=== PATIENT | female | born 1980 | race African-American/Black ===

== ENCOUNTER 2018-03-11 05:22 | Day surgery (SDC) | payer OTHER ==
[2018-03-05 10:00] VITALS: BMI 27.8
--- NOTE | 2018-03-11 11:45 | HP ---
Admitting History and Physical - Admission History of Present Illness: 37 yo with failed IUD removal in the office for removal under anesthesia History Source: Patient Limitations to Obtaining History: No Limitations - Past Medical History Cardiovascular: No: HTN Pulmonary: No: Asthma ...LMP Comment: ?-due to implanted control Heme/Onc: Yes: Sickle Cell Trait. No: Anemia - Past Surgical History Past Surgical History: Yes: - Smoking History Smoking history: Never smoked Have you smoked in the past 12 months: No - Alcohol/Substance Use Hx Alcohol Use: No Home Medications - Allergies Allergies/Adverse Reactions: Allergies Allergy/AdvReac Type Severity Reaction Status Date / Time avocado Allergy "itchy Verified 03/11/18 10:59 mouth and throat" No Known Drug Allergies Allergy Verified 03/11/18 10:59 nectarines Allergy "eye swell" Uncoded 03/11/18 10:59 watermelon Allergy "itchy Uncoded 03/11/18 10:59 throat and mouth" - Home Medications Home Medications: Ambulatory Orders Mv-Min/Iron/Folic/Calcium/Vitk [Women's Multivitamin Tablet] 1 each PO DAILY Family Disease History - Family Disease History Family History: Denies Review of Systems - Review of Systems Constitutional: reports: No Symptoms Cardiovascular: reports: No Symptoms Musculoskeletal: reports: No Symptoms Integumentary: reports: No Symptoms Neurological: reports: No Symptoms Endocrine: reports: No Symptoms Hematology/Lymphatic: reports: No Symptoms Psychiatric: reports: No Symptoms Physical Examination Vital Signs: Vital Signs Temperature 98.0 F 03/11/18 10:56 Pulse Rate 72 03/11/18 10:56 Respiratory Rate 20 03/11/18 10:56 Blood Pressure 102/62 03/11/18 10:56 O2 Sat by Pulse Oximetry (%) 99 03/11/18 10:55 Constitutional: Yes: Well Nourished, No Distress, Calm Cardiovascular: Yes: Regular Rate and Rhythm Respiratory: Yes: Regular, CTA Bilaterally Gastrointestinal: Yes: Normal Bowel Sounds, Soft Renal/: Yes: WNL Musculoskeletal: Yes: WNL Extremities: Yes: WNL Edema: No Wound/Incision: Yes: Unapproximated Neurological: Yes: Alert ...Motor Strength: WNL Psychiatric: Yes: Alert, Oriented Assessment/Plan 37 yo with retained IUD for surgical removal 1. Consents reviewed and signed Reviewed risks including infection, bleeding, uterine perforation All questions answered 2. No antibiotics indicated 3. Will proceed to OR
[2018-03-11] MEDS ORDERED: MIDAZOLAM HCL 2 MG/2 ML SINGLE DOSE VIAL ONE (11:52)
[2018-03-11] MEDS ORDERED: PROPOFOL 20 ML ONE (11:58)
[2018-03-11 12:40] VITALS: TEMP 97.5
--- NOTE | 2018-03-11 14:28 | OP ---
Operative Note - Note: Operative Date: 03/11/18 Pre-Operative Diagnosis: retained IUD Operation: removal of IUD under anesthesia Findings: retained IUD, no strings noted Post-Operative Diagnosis: Same as Pre-op Surgeon: Raisa Sims Anesthesiologist/FAILURE ANALYSIS ENGINEER: Mary Rivas Anesthesia: General Estimated Blood Loss (mls): 3 Fluid Volume Replaced (mls): 500 Operative Report Dictated: Yes
[2018-03-11 15:47] VITALS: BP 115/57; PULSE 88
--- NOTE | 2018-03-11 16:01 | OP ---
DATE OF OPERATION: 03/11/2018 ATTENDING PHYSICIAN: Lena Sims M.D. CENTRAL SUPPLY CLERK: None. ANESTHESIOLOGIST: Mary Rivas M.D. SURGERY: Removal of IUD foreign body under anesthesia. INDICATION: Patient is a 37-year-old with a history of IUD which failed removal in the office due to significant amount of pain and no IUD strings were noted. She was counseled regarding risks, benefits, alternatives, and complications to procedure including infection, bleeding, damage to surrounding organs, uterine perforation. She expressed understanding, was brought to the operating room. DESCRIPTION OF PROCEDURE: When anesthesia was found to be adequate, patient was prepped and draped in normal sterile fashion, placed in dorsal lithotomy position using Buck stirrups. A weighted speculum was placed in the patient's vagina. The anterior lip of the cervix was grasped using single-toothed tenaculum. The cervix was gently dilated, and a polyps forceps was placed onto the fundus and the IUD was grasped and removed intact, 2 strings were noted. All instruments were removed from the patient's vagina. Examination of the cervix revealed good hemostasis. The patient was awoken from anesthesia, brought to recovery room in stable condition. LENA SIMS M.D. /[id number]
--- NOTE | 2018-03-16 15:04 | PATH ---
Surgical Pathology Report Patient Name: YANNI ROLON [facility]. Rec. #: [id number] /Age/Gender: 1980 (Age: 37) / F Account: [id number] Location: [facility] Taken: 03/11/2018 Received: 03/11/2018 Reported: 03/16/2018 Physicians: Raisa Sims Specimen(s) Received IUD FROM UTERUS Clinical History Foreign body in uterus Final Diagnosis INTRAUTERINE DEVICE (IUD), REMOVAL: FOREIGN BODY MATERIAL CONSISTENT WITH INTRAUTERINE DEVICE (IUD). MACROSCOPIC DIAGNOSIS. Electronically Signed Diamante Peterson M.D. Gross Description Received fresh labeled "IUD from uterus," is a 3.2 cm in length white, T-shaped device with an attached string, consistent with an intrauterine device. No soft tissue is present. No sections are submitted, gross only. /03/11/2018 saudi03/11/2018
== END 2018-03-11 15:30 | disposition home or self-care (01) ==
LOC: JASU-SURG 05:22
PROVIDERS: ATTEND Obstetrics & Gynecology
PROC: 0UPD7HZ Removal of Contraceptive Device from Uterus and Cervix, Via Natural or Artificial Opening (ICD-10-PCS; principal; 2018-03-11 12:00)
DX: Z45.89 Encounter for adjustment and management of other implanted devices (principal)
CPT/HCPCS: 36415; 84703; 86850; 86900; 86901; 88300-TC

== ENCOUNTER 2019-04-03 22:09 | Emergency (ER) | payer OTHER ==
[2019-04-03 22:15] VITALS: TEMP 98.8; BMI 28.3
--- NOTE | 2019-04-03 23:28 | PDOC ---
History of Present Illness - General Chief Complaint: Shortness of Breath Stated Complaint: CHEST PAIN,SHORTNESS OF BREATH Time Seen by Provider: 04/03/19 23:16 History Source: Patient Exam Limitations: No Limitations - History of Present Illness Initial Comments: 04/03/19 23:23 Ms. Oquendo is a 38-year-old female who is otherwise healthy who presents emergency department with a complaint of midsternal chest pain and shortness of breath. Patient symptoms began approximately 2 weeks ago while at work. She was seen at her job ([employer]) where she was diagnosed with anxiety/ panic attack (of note patient has a history of a panic attack after having her C -section 6 years ago) She was seen at [facility] subsequent to that, diagnosed with bronchitis. She was started on an antibiotic (completed on Friday-4 days ago), albuterol MDI, steroids. Patient was seen and followed by her primary care physician who ordered a d- dimer, patient never had it done She presents today reporting midsternal chest pain which she describes as tightness. This began 2 hours ago Pain was initially constant, now coming and going No radiation to the arms or back No associated nausea, diaphoresis No prior episodes like this Patient denies recent travel, recent surgery, recent immobilization PMH: Hyperlipidemia PSH: 6 years ago Meds: Denies ALL: NKDA Social: Denies alcohol, drug, tobacco use FH: Denies family history of early coronary artery disease, sudden ROS: GENERAL/CONSTITUTIONAL: No: fever, chills, weakness, loss of appetite. HEAD, EYES, EARS, NOSE AND THROAT: No: change in vision, ear pain, discharge, sore throat, throat swelling. CARDIOVASCULAR: Yes: chest pain, shortness of breath No: lightheadedness, palpitations, syncope RESPIRATORY: No: cough, shortness of breath, wheezing, hemoptysis, stridor. GASTROINTESTINAL: No: nausea, vomiting, diarrhea, abdominal pain GENITOURINARY: No: dysuria, hematuria, frequency, urgency, flank pain. MUSCULOSKELETAL: No: back pain, neck pain, joint pain, muscle swelling or pain SKIN: No: lesions, pallor, rash or easy bruising. NEUROLOGIC: No: headache, vertigo, paresthesias, weakness ENDOCRINE: No: unexplained weight gain or loss HEMATOLOGIC/LYMPHATIC: No: anemia, easy bleeding, swelling nodes. PE: GENERAL: The patient is in no acute distress. HEAD: Normal EYES: PERRLA, EOMI, sclera anicteric, conjunctiva clear. ENT: Ears normal, nares patent, oropharynx clear without exudates. Moist mucous membranes. NECK: Normal range of motion, supple without lymphadenopathy, JVD, or masses. LUNGS: Breath sounds equal, clear to auscultation bilaterally. No wheezes appreciated HEART:Regular rate and rhythm, normal S1 and S2 without murmur, rub or gallop. ABDOMEN: Soft, nontender, normoactive bowel sounds. No guarding, no rebound. No masses palpable. EXTREMITIES: Normal range of motion, no edema. NEUROLOGICAL: Cranial nerves II through XII grossly intact. Normal speech. No focal neurological deficits. MUSCULOSKELETAL: Back non-tender to palpation SKIN: Warm, Dry, normal turgor, no rashes or lesions noted. 04/03/19 23:42 Is this a multiple visit Asthma Patient?: No Past History - Past Medical History Allergies/Adverse Reactions: Allergies Allergy/AdvReac Type Severity Reaction Status Date / Time avocado Allergy "itchy Verified 04/03/19 22:16 mouth and throat" No Known Drug Allergies Allergy Verified 04/03/19 22:16 nectarines Allergy "eye swell" Uncoded 04/03/19 22:16 watermelon Allergy "itchy Uncoded 04/03/19 22:16 throat and mouth" Home Medications: Ambulatory Orders Mv-Min/Iron/Folic/Calcium/Vitk [Women's Multivitamin Tablet] 1 each PO DAILY Anemia: No Asthma: No Cancer: No Cardiac Disorders: No CVA: No COPD: No CHF: No Dementia: No Diabetes: No GI Disorders: No Disorders: No HTN: No Hypercholesterolemia: No Liver Disease: No Seizures: No Thyroid Disease: No - Psycho Social/Smoking Cessation Hx Smoking History: Never smoked Have you smoked in the past 12 months: No Information on smoking cessation initiated: No Hx Alcohol Use: No Drug/Substance Use Hx: No Substance Use Type: None Hx Substance Use Treatment: No *Physical Exam - Vital Signs Last Vital Signs Temp Pulse Resp BP Pulse Ox 98.8 F 90 20 136/89 100 04/03/19 22:13 04/03/19 22:13 04/03/19 22:13 04/03/19 22:13 04/03/19 22:13 ED Treatment Course - LABORATORY CBC & Chemistry Diagram: 04/03/19 23:40 04/03/19 23:40 Medical Decision Making - Medical Decision Making 04/03/19 23:27 38-year-old female presenting to the emergency department with a complaint of chest pain, shortness of breath Patient status post recent treatment for upper respiratory infection Differential diagnosis includes but is not limited to: Musculoskeletal pain, pericarditis, ACS, PE, pneumonia, pneumothorax, pleural effusion, costochondritis Will do: Labs, EKG Chest x-ray if d-dimer negative Possible CT if d-dimer is positive We will reassess 04/03/19 23:42 EKG: Twelve-lead EKG was performed and reviewed by me. There is normal sinus rhythm with a normal rate of 84 bpm. The axis is normal. The intervals are normal. There are no ST or T wave abnormalities. Impression: Normal twelve-lead EKG 04/04/19 00:10 Laboratory Tests 04/03/19 04/03/19 04/03/19 23:40 23:40 23:40 WBC 7.3 Hgb 13.9 Hct 41.6 Plt Count 218 D-Dimer 1047 H Serum , Qual Negative D dimer elevated Will do CTA chest r/o PE 04/04/19 00:20 Laboratory Tests 04/03/19 23:40 BUN 13.4 Creatinine 0.8 04/04/19 02:39 Laboratory Tests 04/04/19 01:38 Creatine Kinase 96 Troponin I < 0.02 CTA: No evidence of pulmonary embolism. Patient resting comfortably in bed. We will discharge home. We will asked patient to return to the emergency department for any other concerns or complaints I discussed the physical exam findings, ancillary test results and final diagnoses with the patient. I answered all of the patient's questions. The patient was satisfied with the care received and felt comfortable with the discharge plan and treatment plan. The patient will call their primary care physician within 24 hours to arrange follow-up and will return to the Emergency Department with any new, persistent or worsening symptoms. Discharge - Discharge Information Problems reviewed: Yes Clinical Impression/Diagnosis: Chest pain Qualifiers: Chest pain type: unspecified Qualified Code(s): R07.9 - Chest pain, unspecified Condition: Stable Disposition: HOME - Admission No - Follow up/Referral - Patient Discharge Instructions Patient Printed Discharge Instructions: DI for Chest Pain, DI for Atypical Chest Pain Additional Instructions: Ms. Oquendo, Thank you for coming into the emergency department today. Please review your labs as well as CT imaging. Please be sure to follow-up with your primary care physician. Please use albuterol as needed for shortness of breath or wheezing You can take Maalox or Motrin for chest pain Return to the emergency department for any other concerns or complaints - Post Discharge Activity Work/Back to School Note: Back to Work
[2019-04-03 23:48] LABS: BASO % 0.4 % (0-2.0); EOS % 2.5 % (0-4.5); HEMATOCRIT 41.6 % (32.4-45.2); HEMOGLOBIN 13.9 GM/dL (10.7-15.3); LYMPH % 36.3 % (8-40); MCH 28.6 pg (25.7-33.7); MCHC 33.5 g/dl (32.0-36.0); MEAN CELL VOLUME 85.2 fl (80-96); MEAN PLT VOLUME 8.2 fl (7.5-11.1); MONO % 7.3 % (3.8-10.2); NEUT % 53.5 % (42.8-82.8); PLATELET COUNT 218 K/MM3 (134-434); RBC 4.88 M/mm3 (3.60-5.2); RDW 13.7 % (11.6-15.6); WHITE BLOOD COUNT 7.3 K/mm3 (4.0-10.0)
[2019-04-04 00:01] LABS: INR 1.05 (0.83-1.09); PROTHROMBIN TIME (PATIENT) 12.4 SEC (9.7-13.0)
[2019-04-04 00:16] LABS: ALBUMIN 3.8 g/dl (3.4-5.0); BILIRUBIN,TOTAL 0.4 mg/dL (0.2-1); BLOOD UREA NITROGEN 13.4 mg/dL (7-18); CALCIUM 9.2 mg/dL (8.5-10.1); CREATININE 0.8 mg/dL (0.55-1.3); POTASSIUM 3.9 mmol/L (3.5-5.1); TOT PROT 7.6 g/dl (6.4-8.2)
[2019-04-04 02:53] VITALS: BP 142/69; PULSE 88
--- NOTE | 2019-04-04 09:57 | PDOC ---
Patient Follow-up (Call Back) - Post ED Follow - Up Condition at time of discharge: Stable Disposition at time of original discharge: HOME - Disposition Additional Instructions/Notes: Received call from radiologist, Dr Conner, about incidental finding of small lesion of R breast Patient called and informed of results Patient states she is already aware of this
--- NOTE | 2019-04-04 10:11 | EKG ---
Test Reason : Blood Pressure : / mmHG Vent. Rate : 084 BPM Atrial Rate : 084 BPM P-R Int : 158 ms QRS Dur : 080 ms QT Int : 372 ms P-R-T Axes : 066 066 049 degrees QTc Int : 439 ms NORMAL SINUS RHYTHM POSSIBLE LEFT ATRIAL ENLARGEMENT POSSIBLE ANTERIOR INFARCT , AGE UNDETERMINED ABNORMAL ECG NO PREVIOUS ECGS AVAILABLE Confirmed by MOHIT LYNN MD ([id number]) on 04/04/2019 10:11:45 AM Referred By: Confirmed By:MOHIT LYNN MD
== END 2019-04-04 02:52 | disposition home or self-care (01) ==
LOC: JER 22:09
DX: R07.9 Chest pain, unspecified (principal); Z91.018 Allergy to other foods
CPT/HCPCS: 36415; 71275-TC; 80053; 82550; 84484; 84703; 85025; 85379; 85610; 85730; 93005; 93010; 99283-25; Q9967

== ENCOUNTER 2020-10-13 06:40 | Inpatient (IN) | payer OTHER ==
[2020-10-13] MEDS ORDERED: CITRIC ACID/SODIUM CITRATE 30 ML UNIT-DOSE CUP PO ONE (07:20)
[2020-10-13] MEDS ORDERED: ELECTROLYTE-148 SOLN 1,000 ML IV SCH (07:30)
[2020-10-13] MEDS ORDERED: ONDANSETRON 4 MG/2 ML VIAL IVPUSH PRN (07:58)
[2020-10-13] MEDS ORDERED: PHENYLEPHRINE HCL 10 MG/1 ML SINGLE DOSE VIAL ONE (08:10)
[2020-10-13] MEDS ORDERED: morphine SULFATE/PF 0.5 MG/ML (2cc Syringe - QUVA) ONE (08:10)
[2020-10-13] MEDS ORDERED: OXYTOCIN 10 UNITS/ML VIAL ONE ×4 (08:22)
[2020-10-13] MEDS ORDERED: ceFAZolin SODIUM 1 GM VIAL ONE ×2 (08:22)
[2020-10-13] MEDS ORDERED: IBUPROFEN 600 MG TABLET (FP) PO PRN (09:16)
[2020-10-13] MEDS ORDERED: WITCH HAZEL 50% (TUCKS) 40 PAD/JAR PAD TP PRN (09:16)
[2020-10-13] MEDS ORDERED: BENZOCAINE 20% 57 GM BOTTLE TP PRN (09:16)
[2020-10-13] MEDS ORDERED: BENZOCAINE 28 GM HEMORRHOIDAL OINTMENT RC PRN (09:16)
[2020-10-13] MEDS ORDERED: METHYLERGONOVINE MALEATE 0.2 MG/1 ML AMP IM PRN (09:16)
[2020-10-13] MEDS ORDERED: diphenhydrAMINE HCL 25 MG CAPSULE (FP) PO PRN (09:16)
[2020-10-13] MEDS ORDERED: DEXTROSE 5%-LACTATED RINGERS 1,000 ML IV SCH (09:30)
[2020-10-13] MEDS ORDERED: OXYTOCIN 20 UNITS in 0.9% NS 20 UNIT/1,000 ML INFUS.BAG IV SCH (09:30)
[2020-10-13 09:47] LABS: CORD BASE EXCESS -4.2 mmol/L (0-2); CORD HCO3 22.8 mmHg (20-29); CORD PCO2 49.9 mmHg (30-78); CORD pH 7.277 (7.14-7.44)
[2020-10-13 09:51] LABS: CORD HCO3 22.7 mmHg (20-29); CORD pH 7.341 (7.14-7.44)
[2020-10-13] MEDS ORDERED: CEFAZOLIN 1 GM/D5W 1 GM/50 ML BAG IVPB SCH (10:00)
[2020-10-13] MEDS: IBUPROFEN 800 MG/8 ML IJ IVPB PRN ×2 (10:15→17:24)
[2020-10-13] MEDS ORDERED: HYDROmorphone HCl 2 MG/ML VIAL ONE (10:40)
[2020-10-13] MEDS ORDERED: HYDROmorphone HCl 2 MG/ML VIAL IVPUSH ONE (11:15)
[2020-10-13] MEDS: oxyCODONE HCL 5 MG TABLET PO PRN ×2 (11:35→21:13)
[2020-10-13] MEDS ORDERED: oxyCODONE HCL 5 MG TABLET ONE (11:35)
[2020-10-13 12:13] VITALS: BMI 30.6
[2020-10-13] MEDS: SIMETHICONE 80 MG TAB.CHEW (FP) PO PRN ×2 (18:23→21:13)
[2020-10-13] MEDS: CEFAZOLIN 1 GM/D5W 1 GM/50 ML BAG IVPB SCH (18:29)
[2020-10-13] MEDS: ACETAMINOPHEN 325 MG TABLET (FP) PO PRN (21:12)
[2020-10-14] MEDS: CEFAZOLIN 1 GM/D5W 1 GM/50 ML BAG IVPB SCH (01:42)
[2020-10-14] MEDS: ACETAMINOPHEN 325 MG TABLET (FP) PO PRN ×4 (02:11→20:41)
[2020-10-14] MEDS: SIMETHICONE 80 MG TAB.CHEW (FP) PO PRN ×4 (02:12→20:42)
[2020-10-14] MEDS: oxyCODONE HCL 5 MG TABLET PO PRN ×3 (02:12→15:42)
[2020-10-14] MEDS: IBUPROFEN 600 MG TABLET (FP) PO PRN ×3 (06:21→20:41)
[2020-10-14] MEDS ORDERED: DIPHTH,PERTUSS(ACELL),TET 0.5 ML DISP.SYRIN IM ONE (08:00)
[2020-10-14] MEDS ORDERED: BISACODYL 10 MG SUPP.RECT PR PRN (09:16)
[2020-10-14] MEDS: ENOXAPARIN NA (PORCINE) 40 MG/0.4 ML DISP.SYRIN SQ SCH (09:17)
[2020-10-14 10:13] LABS: BASO % 0.3 % (0-2.0); EOS % 1.1 % (0-4.5); HEMATOCRIT 33.3 % (32.4-45.2); HEMOGLOBIN 10.7 GM/dL (10.7-15.3); LYMPH % 10.3 % (8-40); MCH 25.2 pg (25.7-33.7); MCHC 32.1 g/dl (32.0-36.0); MEAN CELL VOLUME 78.5 fl (80-96); MEAN PLT VOLUME 7.6 fl (7.5-11.1); MONO % 7.2 % (3.8-10.2); NEUT % 81.1 % (42.8-82.8); PLATELET COUNT 182 10^3/uL (134-434); RBC 4.25 M/mm3 (3.60-5.2); RDW 20.3 % (11.6-15.6); WHITE BLOOD COUNT 9.9 K/mm3 (4.0-10.0)
[2020-10-14 15:35] VITALS: TEMP 98.4
[2020-10-15] MEDS: SIMETHICONE 80 MG TAB.CHEW (FP) PO PRN ×2 (04:13→09:41)
[2020-10-15] MEDS: oxyCODONE HCL 5 MG TABLET PO PRN (04:13)
[2020-10-15] MEDS: IBUPROFEN 600 MG TABLET (FP) PO PRN ×3 (04:14→13:39)
[2020-10-15] MEDS: ACETAMINOPHEN 325 MG TABLET (FP) PO PRN ×3 (04:15→13:40)
[2020-10-15] MEDS: ENOXAPARIN NA (PORCINE) 40 MG/0.4 ML DISP.SYRIN SQ SCH (09:41)
[2020-10-15 10:36] VITALS: BP 117/74; PULSE 77
[2020-10-15] MEDS ORDERED: SENNOSIDES/DOCUSATE COMBO (SENNA PLUS) TABLET (UD) PO PRN (22:00)
== END 2020-10-15 13:40 | disposition home or self-care (01) | DRG 788 ==
LOC: JLDR 06:40 → J3W 13:20
PROVIDERS: ADMIT Obstetrics & Gynecology; ATTEND Obstetrics & Gynecology
PROC: 10D00Z1 Extraction of Products of Conception, Low, Open Approach (ICD-10-PCS; principal; 2020-10-13)
DX: O34.211 Maternal care for low transverse scar from previous cesarean delivery (principal); O69.81X0 Labor and delivery complicated by cord around neck, without compression, not applicable or unspecified; O99.02 Anemia complicating childbirth; D57.3 Sickle-cell trait; Z3A.39 39 weeks gestation of pregnancy; Z37.0 Single live birth
CPT/HCPCS: 36415; 36600; 82803; 85025; 88307-TC; 90715

== ENCOUNTER 2021-07-08 15:31 | Emergency (ER) | payer OTHER ==
[2021-07-08 15:35] VITALS: BMI 27.4
[2021-07-08] MEDS ORDERED: ACETAMINOPHEN 500 MG TABLET (FP) PO ONE (15:48)
[2021-07-08] MEDS ORDERED: ACETAMINOPHEN 325 MG TABLET (FP) ONE (16:01)
[2021-07-08 17:03] VITALS: BP 113/72; PULSE 85; TEMP 98
== END 2021-07-08 17:10 | disposition home or self-care (01) ==
LOC: JER 15:31
DX: T20.06XA Burn of unspecified degree of forehead and cheek, initial encounter (principal); T22.051A Burn of unspecified degree of right shoulder, initial encounter; X12.XXXA Contact with other hot fluids, initial encounter
CPT/HCPCS: 99283-25

== ENCOUNTER 2022-04-25 13:39 | Emergency (ER) | payer OTHER ==
[2022-04-25 14:19] VITALS: BP 118/80; PULSE 76; RESP 18; TEMP 98; BMI 26.6
[2022-04-25] MEDS ORDERED: IBUPROFEN 600 MG TABLET (FP) PO ONE ×2 (16:16→16:21)
== END 2022-04-25 17:27 | disposition home or self-care (01) ==
LOC: JER 13:39 → JERFT 13:39
DX: M25.512 Pain in left shoulder (principal)
CPT/HCPCS: 0241U-QW; 71046-TC-FY; 73030-TC-LT-FY; 93005; 93010; 99285-25